=== PATIENT | male | born 1980 | race Asian ===

== ENCOUNTER 2024-05-28 08:44 | Emergency (ER) | payer MEDICAID ==
[~2024-05-28] VITALS: Ht 167.6 cm; Wt 69.0 kg
[2024-05-28 08:59] VITALS: TEMP 98.4; O2SAT 99
[2024-05-28] MEDS ORDERED: METF-873 MT (09:32)
[2024-05-28] MEDS ORDERED: GLIM2TAB30 MT (09:32)
[2024-05-28] MEDS ORDERED: DAPA5TAB MT (09:32)
[2024-05-28] MEDS ORDERED: LOSA50TA41 MT (09:32)
[2024-05-28] MEDS ORDERED: ROSU40TA MT (09:32)
[2024-05-28 09:44] VITALS: BP 130/80; PULSE 78; RESP 16; O2SAT 99
== END 2024-05-28 09:45 | disposition home or self-care (01) ==
LOC: ER 08:44
DX: I16.1 Hypertensive emergency (principal); E78.00 Pure hypercholesterolemia, unspecified; E11.10 Type 2 diabetes mellitus with ketoacidosis without coma; Z76.0 Encounter for issue of repeat prescription; Z79.899 Other long term (current) drug therapy
CPT/HCPCS: 99281